=== PATIENT | female | born 2000 | race Caucasian/White ===

== ENCOUNTER 2018-09-18 15:51 | Emergency (ER) | payer OTHER ==
[~2018-09-18] VITALS: Ht 177.8 cm; Wt 97.5 kg
--- OUTSIDE RECORDS SUMMARY | 2018-09-18 15:54 | XMS REPORT | Summary of Care ---
Author Author Oliver Duncan Organization Unknown Address Unknown Phone Unavailable Care Team Providers Care Automotive Maintenance Technician Name Role Phone WILSON LEACH N.P. Unavailable Unavailable JACOB VEGA N.P. Unavailable Unavailable Unavailable Unavailable Functional Status Name Dates Details Functional status health issues are not documented Status: Name Dates Details Cognitive status health issues are not documented Status: Problems Name Dates Details Irregular menses (626.4, N92.6) Status: Active Acne (706.1, L70.9) Status: Active Irregular menses (626.4, N92.6) Status: Active Asthma (493.90, J45.909) Status: Active Excessive sweating (780.8, R61) Status: Active Encounter to establish care with new doctor (V65.8, Z76.89) Status: Active Insomnia (780.52, G47.00) Status: Active Anxiety and depression (300.00, F41.9) Status: Active Generalized anxiety disorder (300.02, F41.1) Status: Active Inattention (799.51, R41.840) Status: Active Acute asthmatic bronchitis (493.90, J45.909) Status: Active Medications Name Dates Details Glycopyrrolate 2 MG Oral Tablet TAKE 1 TABLET DAILY. Quantity: 90 HANY N.P., WILSON * Start : 22-Apr-2018 Active Montelukast Sodium 10 MG Oral Tablet TAKE 1 TABLET AT BEDTIME. * Quantity: 90 Refills: 1 HANY N.P., WILSON * Start : 22-Apr-2018 Active ProAir HFA 108 (90 Base) MCG/ACT Inhalation Aerosol Solution TAKE 2 PUFFS BY MOUTH EVERY 4 HOURS NEEDED FOR WHEEZE. * Quantity: 3 Refills: 0 HANY N.P., WILSON * Start : 20-Jul-2018 Active 8.5 GM Inhaler Estarylla 0.25-35 MG-MCG Oral Tablet TAKE ONE TABLET BY MOUTH EVERY DAY DIRECTED * Quantity: 1 Refills: 11 HANY N.P., WILSON * Start : 22-Apr-2018 Active 28 Tablet Pack Spironolactone 25 MG Oral Tablet TAKE 1 TABLET DAILY * Quantity: 90 Refills: 1 HANY N.P., WILSON * Start : 22-Apr-2018 Active Qvar RediHaler 40 MCG/ACT Inhalation Aerosol Breath Activated INHALE 2 PUFFS TWICE DAILY * Quantity: 1 Refills: 5 LEACH N.P., WILSON * Start : 20-May-2018 Active 10.6 GM Inhaler BusPIRone HCl - 10 MG Oral Tablet TAKE 1 TABLET 3 TIMES DAILY * Quantity: 90 Refills: 0 DOBSON-FOSTER N.P., JACOB Active Desvenlafaxine Succinate ER 100 MG Oral Tablet Extended Release 24 Hour TAKE 2 TABLETS BY MOUTH EVERY DAY * Quantity: 60 Refills: 0 DOBSON-FOSTER N.P., JACOB * Start : 04-Aug-2018 Active Amoxicillin 500 MG Oral Capsule TAKE 1 CAPSULE TWICE DAILY. * Quantity: 14 Refills: 0 LEACH N.P., WILSON * Start : 05-Aug-2018 Active Benzonatate 100 MG Oral Capsule 1-2 caps as needed every 8 hours wit mucinex DM or Delsym OTC. * Quantity: 30 Refills: 1 LEACH N.P., WILSON * Start : 05-Aug-2018 Active Allergies and Adverse Reactions Name Dates Details No Known Allergies (Allergy) Status: Active Past Medical History Name Dates Details History of anxiety (V11.8, Z86.59) Status: Resolved History of depression (V11.8, Z86.59) Status: Resolved History of panic disorder (V11.1, Z65.8) Status: Resolved Procedures Procedure Dates Details History of [place] tooth extraction Completed History of Wrist Surgery Completed History of Shoulder Surgery Completed Immunization Name Dates Details Immunizations not documented Family History Name Dates Details Family history of Anxiety (300.00, F41.9) Status: Active Name Dates Details Family history of diabetes mellitus (V18.0, Z83.3) Status: Active Social History Name Dates Details - Status: Name Dates Details Never smoker Vital Signs Date Test Result Details :57 O2 SAT 96 % Status: Comments: Source: [id number] BP Systolic 122 mm[Hg] Status: Comments: Location: LUE; Position: Sitting BP Diastolic 84 mm[Hg] Status: Comments: Location: LUE; Position: Sitting Height 70 in Status: Weight 218.375 lb Status: Body Mass Index Calculated 31.33 kg/m2 Status: Body Surface Area Calculated 2.17 m2 Status: Temperature 97.7 f Status: Comments: Method: Temporal Heart Rate 83 /min Status: Comments: Location: L Brachial Artery; Respiration Rate 16 /min Status: [id number] Physical Findings 17 Status: Comments: PHQ-9 Adult Depression Screening Results Date Description Value Details [id number] [O] Flu Test (in Office ) Flu A neg (Normal) Flu B neg (Normal) Plan of Care Name Dates Details Planned Observations Planned Goals not documented Planned Encounters Appointment; JACOB VEGA NP On: 19-Aug-2018 10:30 Instructions Name Dates Details Instructions not documented Encounters Appointment; WILSON LEACH NP Encounter Diagnosis: Problem not documented On: 22-Apr-2018 10:00 Appointment; JACOB VEGA NP Encounter Diagnosis: Problem not documented On: 16-Jul-2018 15:00 Appointment; WILSON LEACH NP Encounter Diagnosis: Problem not documented On: 05-Aug-2018 10:00
[2018-09-18] MEDS ORDERED: ACETAMINOPHEN 325 MG TAB PO ONE (17:00)
[2018-09-18] MEDS ORDERED: ONDANSETRON HCL 4 MG ORAL DISINTEGRATING TAB PO ONE (17:00)
[2018-09-18] MEDS ORDERED: IBUPROFEN 200 MG TAB PO ONE (17:00)
--- NOTE | 2018-09-18 17:51 | Diagnostic Imaging Report ---
Exam: Right finger Series. History: Trauma to right index finger Comparison: None. Findings: 3 views of the right hand. There is normal bone mineralization. Negative for acute, displaced fracture or dislocation. The joint spaces are normal. No abnormal soft tissue calcification or mass. No cystic erosive changes.No significant soft tissue swelling. Impression: 1. No acute bony abnormalities. Signed by: Dr. Osmar Richard M.D. on 09/18/2018 5:47 PM
[2018-09-18 19:52] VITALS: BP 128/92
== END 2018-09-18 19:44 | disposition home or self-care (01) ==
LOC: ER 15:51
DX: S60.021A Contusion of right index finger without damage to nail, initial encounter (principal); W22.8XXA Striking against or struck by other objects, initial encounter; Y92.009 Unspecified place in unspecified non-institutional (private) residence as the place of occurrence of the external cause; J45.909 Unspecified asthma, uncomplicated; F41.8 Other specified anxiety disorders
CPT/HCPCS: 99283